=== PATIENT | male | born 2000 | race African-American/Black ===

== ENCOUNTER 2023-10-04 11:57 | Emergency (ER) | payer MEDICAID, OTHER ==
[~2023-10-04] VITALS: Ht 177.8 cm; Wt 74.0 kg
[2023-10-04 11:58] VITALS: BP 145/96; PULSE 86; RESP 18; TEMP 98.1; O2SAT 97
[2023-10-04] MEDS ORDERED: METOCLOPRAMIDE HCL 10MG/2ML VIAL IM ONE (12:45)
[2023-10-04 13:44] LABS: HEMATOCRIT. 44.5 % (42.0-52.0); HEMOGLOBIN. 15.1 g/dL (14.0-18.0); MEAN CORPUSCULAR HEMOGLOBIN 29.3 pg (28.0-32.0); MEAN CORPUSCULAR HGB CONC 33.9 g/dL (31.0-37.0); MEAN CORPUSCULAR VOLUME 86.4 fL (80.0-94.0); PLATELET 178 x1000/uL (130-400); RED BLOOD CELL COUNT 5.16 mill/uL (4.7-6.1); RED CELL DISTRIBUTION WIDTH 13.6 % (11.6-14.6); WHITE BLOOD COUNT 12.1 x1000/uL (4.5-11.0)
[2023-10-04 13:57] LABS: ALANINE AMINOTRANSFERASE 13 IU/L (10-49); ALBUMIN 4.8 g/dL (3.2-4.8); ASPARTATE AMINOTRANSFERASE 24 IU/L (<34); CALCIUM 10.1 mg/dL (8.7-10.4); CARBON DIOXIDE 23 mEq/L (21-32); CHLORIDE 108 mEq/L (98-107); CREATININE 0.9 mg/dL (0.6-1.3); GLUCOSE 113 mg/dL (70-105); POTASSIUM 3.2 mEq/L (3.5-5.1); PROTEIN TOTAL 7.9 g/dL (6.0-8.3); SODIUM 143 mEq/L (136-145); UREA NITROGEN BLOOD 10 mg/dL (9-23)
[2023-10-04 13:59] LABS: DIFFERENTIAL COMMENT 1
[2023-10-04 14:25] LABS: PLATELET ESTIMATE NORMAL
[2023-10-04] MEDS ORDERED: ONDA4TAB50 MT (15:10)
[2023-10-04] MEDS ORDERED: METOCLOPRAMIDE HCL 10MG/2ML VIAL IM NR (15:45)
== END 2023-10-04 15:53 | disposition home or self-care (01) ==
LOC: ER 11:57
DX: R11.2 Nausea with vomiting, unspecified (principal); J45.909 Unspecified asthma, uncomplicated; Z88.6 Allergy status to analgesic agent
CPT/HCPCS: 80053; 83690; 85025; 36415; 96372; 99283; J2765; Z7610